=== PATIENT | female | born 1985 | race Native Hawaiian/Other Pacific Islander ===

== ENCOUNTER 2018-01-19 15:01 | Emergency (ER) | payer OTHER ==
[~2018-01-19] VITALS: Ht 160 cm; Wt 72.6 kg
[~2018-01-19 15:01] MED LIST: TRAM50TA PO
[2018-01-19 16:39] LABS: PLATELET COUNT 544 K/uL (152-353)
[2018-01-19 16:49] LABS: POTASSIUM 3.6 mmol/L (3.6-5.2); SODIUM 141 mmol/L (136-145)
[2018-01-19 19:27] VITALS: BP 132/71; TEMP 99
== END 2018-01-19 19:28 | disposition home or self-care (01) ==
LOC: ED 15:01
DX: J18.8 Other pneumonia, unspecified organism (principal); F41.8 Other specified anxiety disorders; R07.89 Other chest pain; R06.4 Hyperventilation; R06.02 Shortness of breath; R00.2 Palpitations
CPT/HCPCS: 36415; 80053; 80307; 81000; 84484; 85027; 93005; 96372; 96374; 96375; 99284; J0696; J1885; J2060; J2175; J2550

== ENCOUNTER 2018-03-09 08:40 | Emergency (ER) | payer OTHER ==
[~2018-03-09] VITALS: Ht 160 cm; Wt 72.6 kg
[2018-03-09 08:50] VITALS: TEMP 97.9
[2018-03-09 10:27] LABS: PLATELET COUNT 510 K/uL (152-353)
[2018-03-09 10:56] LABS: POTASSIUM 3.7 mmol/L (3.6-5.2)
[2018-03-09 11:51] VITALS: BP 109/76
== END 2018-03-09 12:00 | disposition home or self-care (01) ==
LOC: ED 08:40
DX: F13.239 Sedative, hypnotic or anxiolytic dependence with withdrawal, unspecified (principal); R25.8 Other abnormal involuntary movements; T42.4X5A Adverse effect of benzodiazepines, initial encounter; R00.0 Tachycardia, unspecified
CPT/HCPCS: 36415; 80053; 80307; 81000; 85027; 93005; 96360; 96374; 99284; J2060; J2405; J7120

== ENCOUNTER 2018-11-10 11:37 | Outpatient (CLI) | payer OTHER ==
[2018-11-10 12:23] LABS: PLATELET COUNT 515 K/uL (152-353)
[2018-11-10 12:44] LABS: POTASSIUM 3.8 mmol/L (3.6-5.2)
== END 2018-11-10 20:01 | disposition home or self-care (01) ==
LOC: LABW 11:37
PROVIDERS: Physician Assistant
DX: R60.9 Edema, unspecified (principal); N30.90 Cystitis, unspecified without hematuria
CPT/HCPCS: 36415; 80053; 81000; 85027

== ENCOUNTER 2019-07-05 15:36 | Emergency (ER) | payer OTHER ==
[~2019-07-05] VITALS: Ht 149.9 cm; Wt 86.6 kg
[2019-07-05 16:54] LABS: PLATELET COUNT 525 K/uL (152-353)
[2019-07-05 17:00] LABS: POTASSIUM 3.6 mmol/L (3.6-5.2)
[2019-07-05 20:00] VITALS: BP 122/79; TEMP 98.1
== END 2019-07-05 20:00 | disposition home or self-care (01) ==
LOC: ED 15:36
PROVIDERS: Student in an Organized Health Care Education/Training Program
DX: R07.89 Other chest pain (principal); M79.602 Pain in left arm; R00.2 Palpitations
CPT/HCPCS: 80053; 80307; 81000; 83605; 83735; 83880; 84443; 84484; 84702; 85027; 85379; 85610; 85730; 87040; 93005; 96372; 99283; J1885; J2270

== ENCOUNTER 2019-07-08 10:57 | Outpatient (CLI) | payer OTHER | END 2019-07-08 21:30 | disposition home or self-care (01) | LOC: RAD 10:57 | DX: M54.2 Cervicalgia (principal) ==

== ENCOUNTER 2021-02-22 20:00 | Emergency (ER) | payer OTHER ==
[~2021-02-22] VITALS: Ht 149.9 cm; Wt 93.4 kg
[2021-02-22 21:05] LABS: PLATELET COUNT 476 K/uL (152-353)
[2021-02-22 21:11] LABS: POTASSIUM 3.8 mmol/L (3.6-5.2); SODIUM 135 mmol/L (136-145)
[2021-02-22 21:15] LABS: PARTIAL THROMBOPLASTIN TIME 25.9 SECONDS (24.5-33.6)
[2021-02-22 22:20] VITALS: BP 135/76; TEMP 97.6
== END 2021-02-22 22:30 | disposition home or self-care (01) ==
LOC: ED 20:00
PROVIDERS: Hospitalist
DX: J45.901 Unspecified asthma with (acute) exacerbation (principal); J40 Bronchitis, not specified as acute or chronic; Z20.822 Contact with and (suspected) exposure to COVID-19; F17.210 Nicotine dependence, cigarettes, uncomplicated; Z53.29 Procedure and treatment not carried out because of patient's decision for other reasons
CPT/HCPCS: 36415; 36600; 80053; 82550; 82805; 83605; 83880; 84484; 85027; 85610; 85730; 87040; 87635; 87651; 93005; 94664; 96365; 96375; 99284; J0696; J1100; J1885; U0003

== ENCOUNTER 2021-04-01 11:07 | Emergency (ER) | payer OTHER ==
[~2021-04-01] VITALS: Ht 149.9 cm; Wt 83.0 kg
[2021-04-01 14:25] VITALS: BP 133/90; TEMP 98.2
== END 2021-04-01 14:29 | disposition home or self-care (01) ==
LOC: ED 11:07
DX: M62.838 Other muscle spasm (principal); G89.29 Other chronic pain; V40.6XXA Car passenger injured in collision with pedestrian or animal in traffic accident, initial encounter; Y92.89 Other specified places as the place of occurrence of the external cause
CPT/HCPCS: 96372; 99283; J1885